=== PATIENT | female | born 1975 | race Two or more races ===

== ENCOUNTER 2017-01-31 18:25 | Emergency (ER) | payer OTHER ==
[~2017-01-31] VITALS: Ht 165.1 cm; Wt 74.8 kg
--- NOTE | ~2017-01-31 | CT4 ---
[facility]. [facility] A Service of [facility] RADIOLOGY TEXT RESULTS PATIENT: CHRISSY SCHMID LOCATION: SED : 73 UNIT #: [id number] AGE: [address]: KARTIK YANCEY SEX: F ORDER DR: [id number] [place] [id number] E MR#: [id number] Acc #: [id number] NAME: CHRISSY SCHMID : 1975 SEX: F STUDY DATE/TIME: 01/31/2017 20:02 UNIT: SED ROOM: STUDY DESCRIPTION: CT Abd and Pelv Wo Cont Attending Physician: Kartik Yancey Ordering Physician: Kartik Yancey MEDICAL IMAGING REPORT This report is preliminary unless electronic signature is present. EXAM CT abdomen and pelvis without contrast, 01/31/2017 HISTORY 42-year-old female with lower pelvic pain, vomiting and weakness for 4-5 days. COMPARISON None TECHNIQUE Helical scan performed through the abdomen and pelvis without oral or IV contrast. Coronal and sagittal reformatted images. This CT exam was performed with one or more of the following radiation dose reduction techniques: automatic exposure control, adjustment of mA and/or kV according to patient size, and iterative reconstruction. FINDINGS Visualized lung bases are unremarkable. The liver, spleen, pancreas, gallbladder and both adrenal glands are unremarkable allowing for lack of IV contrast. There is mild bilateral hydroureteronephrosis. No obstructing urinary tract stones. There is some mild right perinephric hazy inflammatory stranding. Underlying right-sided pyelonephritis is not excluded. Correlation with urinalysis. Abdominal aorta normal in course and caliber. Small bowel is unremarkable without obstruction. Appendix is normal. Colon unremarkable. No free fluid or free air. The uterus is moderately enlarged. Uterine mass or possible uterine fibroid not excluded. This can be further evaluated with a non-emergent pelvic ultrasound when the patient is clinically able. The urinary [facility] A Service of [facility] RADIOLOGY TEXT RESULTS PATIENT: CHRISSY SCHMID LOCATION: SED : 74 UNIT #: [id number] AGE: [address]: KARTIK YANCEY SEX: F ORDER DR: bladder is mildly distended. Adnexa are unremarkable. No significant free pelvic fluid. No acute bony abnormality. IMPRESSION 1. Mild bilateral hydroureteronephrosis. No urinary tract stones. There is mild, hazy right perinephric inflammatory stranding. Underlying right-sided pyelonephritis is not excluded on this unenhanced exam. There is also mild distension of the urinary bladder. Correlation with urinalysis. 2. Moderate enlargement of the uterus. Underlying uterine mass or possibly uterine fibroid not excluded on this unenhanced exam. Further characterization with a non-emergent pelvic ultrasound is suggested. 3. Normal appendix. Dictated by... Ender Lewis M.D. THIS IS AN ELECTRONICALLY VERIFIED REPORT Ender Lewis M.D. at 02/01/2017 5:10 PM Zenaida TD: 02/01/2017 10:32 JOB #: [id number] MEDICAL IMAGING REPORT Page 1 of 1
--- NOTE | ~2017-01-31 | CT52 ---
[facility] A Service of [facility] RADIOLOGY TEXT RESULTS PATIENT: CHRISSY SCHMID LOCATION: SED : [birth year] UNIT #: [id number] AGE: [address]: KARTIK YANCEY SEX: F ORDER DR: [id number] [place] [id number] E MR#: [id number] Acc #: [id number] NAME: CHRISSY SCHMID : 1975 SEX: F STUDY DATE/TIME: 01/31/2017 19:48 UNIT: SED ROOM: STUDY DESCRIPTION: CT Cervical Spine Wo Cont Attending Physician: Kartik Yancey Ordering Physician: Kartik Yancey MEDICAL IMAGING REPORT This report is preliminary unless electronic signature is present. EXAM CT cervical spine without contrast 01/31/2017 HISTORY 42-year-old female with neck pain after being found down today. COMPARISON: None. TECHNIQUE Helical scan performed through the cervical spine without IV contrast. Coronal and sagittal reformatted images. The CT exam was performed with one or more of the following radiation dose reduction techniques: automatic exposure control, adjustment of mA and/or kV according to patient size, and iterative reconstruction. FINDINGS No evidence of acute fracture or subluxation. Vertebral body heights and alignment are normally maintained. Prevertebral soft tissues are normal. Atlantoaxial relationship is normal. Cervicothoracic junction is unremarkable. Disc spaces and facets are within normal limits. No significant bony canal stenosis. Paravertebral soft tissues are unremarkable. The visualized lung apices are unremarkable. IMPRESSION Unremarkable unenhanced cervical spine CT. Dictated by... Ender Lewis M.D. [facility] A Service of [facility] RADIOLOGY TEXT RESULTS PATIENT: CHRISSY SCHMID LOCATION: SED : 74 UNIT #: [id number] AGE: [address]: KARTIK YANCEY SEX: F ORDER DR: THIS IS AN ELECTRONICALLY VERIFIED REPORT Ender Lewis M.D. at 02/01/2017 5:09 PM Sherie TD: 02/01/2017 11:04 JOB #: [id number] MEDICAL IMAGING REPORT Page 1 of 1
--- NOTE | ~2017-01-31 | CT71 ---
[facility] A Service of [facility] RADIOLOGY TEXT RESULTS PATIENT: CHRISSY SCHMID LOCATION: SED : [birth year] UNIT #: [id number] AGE: [address]: KARTIK YANCEY SEX: F ORDER DR: [id number] [place] [id number] E MR#: [id number] Acc #: [id number] NAME: CHRISSY SCHMID : 1975 SEX: F STUDY DATE/TIME: 01/31/2017 19:58 UNIT: SED ROOM: STUDY DESCRIPTION: CT Head Wo Contrast Attending Physician: Kartik Yancey Ordering Physician: Kartik Yancey MEDICAL IMAGING REPORT This report is preliminary unless electronic signature is present. EXAM CT head without contrast, 01/31/2017 HISTORY 42-year-old female with headache and dizziness after being found down today. COMPARISON None TECHNIQUE Routine unenhanced axial images performed through the brain. This CT exam was performed with one or more of the following radiation dose reduction techniques: automatic exposure control, adjustment of mA and/or kV according to patient size, and iterative reconstruction. FINDINGS No hemorrhage, acute infarction, mass lesion, or abnormal extraaxial fluid collection. No midline shift or focal mass effect. Ventricular system normal in size and configuration. No acute bony abnormality. Visualized paranasal sinuses and mastoid air cells are clear. IMPRESSION No acute intracranial abnormality. Dictated by... Ender Lewis M.D. THIS IS AN ELECTRONICALLY VERIFIED REPORT Ender Lewis M.D. at 02/01/2017 5:09 PM NEEL/anderson [facility] A Service of [facility] RADIOLOGY TEXT RESULTS PATIENT: CHRISSY SCHMID LOCATION: SED : [birth year] UNIT #: [id number] AGE: [address]: KARTIK YANCEY SEX: F ORDER DR: TD: 02/01/2017 10:25 JOB #: [id number] MEDICAL IMAGING REPORT Page 1 of 1
[2017-01-31] MEDS ORDERED: BIRTH CONTROL PILL (18:33)
[2017-01-31] MEDS ORDERED: HCTZ (18:33)
[2017-01-31] MEDS ORDERED: AZULFIDINE (18:33)
[2017-01-31 19:23] LABS: BASOPHIL% 0.3 % (0-2.5); EOSINOPHIL% 0.1 % (0.0-7.0); HEMATOCRIT 14.1 % (35.0-45.0); LYMPHOCYTE# 0.8 X10e3 (1.0-3.5); LYMPHOCYTE% 8.4 % (17.0-45.0); MEAN CELL VOLUME 80.6 FL (83-96); MEAN CORPUSCULAR HEMOGLOBIN 26.6 PG (28-34); MEAN CORPUSCULAR HGB CONC 33.1 g/dL (30-36); MEAN PLATELET VOLUME 9.2 FL (6.5-11.5); MONOCYTE# 1.1 X10e3 (0-1.0); MONOCYTE% 12.3 % (3.0-12.0); NEUTROPHIL# 7.4 X10e3 (1.5-7.1); NEUTROPHIL% 78.9 % (40-75); PLATELET COUNT 287 X10e3 (140-420); RED BLOOD COUNT 1.75 X10e (3.90-5.30); RED CELL DISTRIBUTION WIDTH 15.2 % (11.0-15.5); WHITE BLOOD COUNT 9.4 X10e3 (4.0-10.5)
[2017-01-31 19:24] LABS: DIFF IND NO; HEMOGLOBIN 4.7 gm/dL (12.0-16.0)
[2017-01-31 19:25] LABS: URINE SOURCE CLEAN CATCH
[2017-01-31 19:26] LABS: ALBUMIN SERUM 2.7 g/dL (3.5-5.0); BILIRUBIN,TOTAL 0.3 mg/dL (0.2-2.0); BUN/CREATININE RATIO 13.33; CALCIUM SERUM 7.9 mg/dL (8.4-10.2); CREATININE SERUM 0.6 mg/dL (0.6-1.4); GLOM FILT RATE Estimated 111.6 mL/min (>60); POTASSIUM 3.8 mmol/L (3.5-5.1); PROTEIN TOTAL SERUM 6.5 g/dL (6.0-8.3)
[2017-01-31 19:27] LABS: URINE APPEARANCE CLEAR; URINE BILIRUBIN NEG (NEG); URINE BLOOD 1+ (NEG); URINE COLOR YELLOW; URINE GLUCOSE NEG (NORM); URINE LEUKOCYTE ESTERASE NEG (NEG); URINE NITRATE POS (NEG); URINE PROTEIN 1+ (NEG)
[2017-01-31 19:30] LABS: MICRO INDICATED? YES; URINE KETONE 2+ (NEG)
[2017-01-31 19:31] LABS: CULTURE INDICATED? YES; URINE BACTERIA 2+ (NEG); URINE MUCUS PRESENT; URINE RBC 0-2 /[HPF] (0-2); URINE SQUAMOUS EPITHELIAL CELL OCCAS /[HPF]
[2017-02-02 23:55] LABS: CHLAMYDIA TRACH Not Detected (Not Detected); N GONOR Not Detected (Not Detected)
[2017-02-06] MEDS ORDERED: KEFLEX500 M1 PO (15:56)
== END 2017-02-01 00:13 ==
LOC: SED 18:25
PROVIDERS: Nurse Practitioner
DX: N93.9 Abnormal uterine and vaginal bleeding, unspecified (principal); N10 Acute pyelonephritis; D64.9 Anemia, unspecified; F17.200 Nicotine dependence, unspecified, uncomplicated
CPT/HCPCS: 36415; 36430; 51701; 70450; 72125; 74176; 80053; 81003; 84703; 85025; 86850; 86900; 86901; 86922; 87086; 87088; 87186; 87210; 87491; 87591; 87808; 87905; 96361; 96374; 99285; J0696; J1200; P9016